=== PATIENT | male | born 1970 | race Caucasian/White ===

== ENCOUNTER 2017-01-23 11:15 | Day surgery (SDC) | payer BC ==
[~2017-01-23] VITALS: Ht 177.8 cm; Wt 86.4 kg
[~2017-01-23 11:15] MED LIST: ASPI1TAB7 PO; TESTOSTERONE PO; [UNRECOGNIZED DRUG - OTHER] PO
[2017-01-23 12:14] VITALS: BP 157/86; PULSE 73; RESP 18; TEMP 98.2; O2SAT 99
[2017-01-23] MEDS ORDERED: SODIUM CHLORIDE 0.9% FLUSH 10 ML FLUSH IV FLUSH PRN (12:15)
[2017-01-23] MEDS ORDERED: SODIUM CHLOR 0.9% 1000 ML INJ 1,000 ML IV SCH (12:15)
[2017-01-23 12:37] LABS: AUTOMATED NEUTROPHIL # 3.1 TH/MM3 (1.8-7.7); BASOPHIL # 0.1 TH/MM3 (0-0.2); EOSINOPHIL # 0.2 TH/MM3 (0-0.4); EOSINOPHIL % 4.3 % (0.0-4.0); HEMATOCRIT 46.5 % (39.0-51.0); HEMO FLAGS DIFF FINAL; LYMPH % 28.2 % (9.0-44.0); LYMPHOCYTE # 1.5 TH/MM3 (1.0-4.8); MEAN CELL VOLUME 87.2 FL (80.0-100.0); MEAN CORPUSCULAR HEMOGLOBIN 28.9 PG (27.0-34.0); MEAN CORPUSCULAR HGB CONC 33.1 % (32.0-36.0); NEUT % 56.5 % (16.0-70.0); PLATELET COUNT 183 TH/MM3 (150-450); RED BLOOD COUNT 5.33 MIL/MM3 (4.50-5.90); RED CELL DISTRIBUTION WIDTH 14.2 % (11.6-17.2); WHITE BLOOD COUNT 5.5 TH/MM3 (4.0-11.0)
--- NOTE | 2017-01-23 12:41 | HHI.HP ---
History of Present Illness Chief Complaint: R>L LE venous insufficiency History of Present Illness 46 yo male with R>L LE venous insufficiency. No DVT. no wounds. Failed compression Past/Family/Social History Past Medical History L thigh AVM (stab) Past Surgical History IHR Social History nonsmoker Family History No DVT, AVM Home Medications Reported Medications Aspirin 81 mg Tab (Aspirin 81 mg Tab) 81 Mg Tab, 1 TAB PO DAILY 10/07/13 [Social Media Marketing Specialist Cuts] No Conflict Check, 2 CAP PO BID 10/07/13 [Testosterone ] No Conflict Check, 1 CAP PO BID 10/07/13 Coded Allergies: shrimp (Unverified Allergy, Unknown, Hives, 10/11/16) FACIAL SWELLING Review of Systems Constitutional: DENIES: Diaphoretic episodes, Fatigue, Fever, Weight gain, Weight loss, Chills, Dizziness, Change in appetite, Night Sweats Cardiovascular: DENIES: Chest pain, Palpitations, Syncope, Dyspnea on Exertion , PND, Lower Extremity Edema, Orthopnea, Claudication Musculoskeletal: COMPLAINS OF: Joint Swelling Physical Exam Vitals/I&O Date Time Temp Pulse Resp B/P (MAP) Pulse Ox O2 Delivery O2 Flow Rate FiO2 01/23/17 12:14 98.2 73 18 157/86 (109) 99 Neuro: alert, oriented HEENT: NC/AT Neck: trachea midline Heart: reg rate Lungs: nonlabored breathing Vascular: R LE varicosities, no ulcers Laboratory Tests Test 01/23/17 11:40 White Blood Count 5.5 Red Blood Count 5.33 Hemoglobin 15.4 Hematocrit 46.5 Mean Corpuscular Volume 87.2 Mean Corpuscular Hemoglobin 28.9 Mean Corpuscular Hemoglobin Concent 33.1 Red Cell Distribution Width 14.2 Platelet Count 183 Mean Platelet Volume 8.8 Neutrophils (%) (Auto) 56.5 Lymphocytes (%) (Auto) 28.2 Monocytes (%) (Auto) 10.0 Eosinophils (%) (Auto) 4.3 Basophils (%) (Auto) 1.0 Neutrophils # (Auto) 3.1 Lymphocytes # (Auto) 1.5 Monocytes # (Auto) 0.5 Eosinophils # (Auto) 0.2 Basophils # (Auto) 0.1 CBC Comment DIFF FINAL Differential Comment Caprini VTE Risk Assessment Caprini VTE Risk Assessment: No/Low Risk (score <= 1) Caprini Risk Assessment Model Point Value = 1 Point Value = 2 Point Value = 3 Point Value = 5 Age 41-60 Minor surgery BMI > 25 kg/m2 Swollen legs Varicose veins or History of unexplained or recurrent spontaneous Oral contraceptives or hormone replacement Sepsis (< 1 month) Serious lung disease, including pneumonia (< 1 month) Abnormal pulmonary function Acute myocardial infarction Congestive heart failure (< 1 month) History of inflammatory bowel disease Medical patient at bed rest Age 61-74 Arthroscopic surgery Major open surgery (> 45 min) Laparoscopic surgery (> 45 min) Malignancy Confined to bed (> 72 hours) Immobilizing plaster cast Central venous access Age >= 75 History of VTE Family history of VTE Factor V Leiden Prothrombin [id number] Lupus anticoagulant Anticardiolipin antibodies Elevated serum homocysteine Heparin-induced thrombocytopenia Other congenital or acquired thrombophilia Stroke (< 1 month) Elective arthroplasty Hip, pelvis, or leg fracture Acute spinal cord injury (< 1 month) Prophylaxis Regimen Total Risk Factor Score Risk Level Prophylaxis Regimen 0-1 Low Early ambulation 2 Moderate Order ONE of the following: *Sequential Compression Device (SCD) *Heparin 5000 units SQ BID 3-4 Higher Order ONE of the following medications: *Heparin 5000 units SQ TID *Enoxaparin/Lovenox 40 mg SQ daily (WT < 150 kg, CrCl > 30 mL/min) *Enoxaparin/Lovenox 30 mg SQ daily (WT < 150 kg, CrCl > 10-29 mL/min) *Enoxaparin/Lovenox 30 mg SQ BID (WT < 150 kg, CrCl > 30 mL/min) AND/OR *Sequential Compression Device (SCD) 5 or more Highest Order ONE of the following medications: *Heparin 5000 units SQ TID (Preferred with Epidurals) *Enoxaparin/Lovenox 40 mg SQ daily (WT < 150 kg, CrCl > 30 mL/min) *Enoxaparin/Lovenox 30 mg SQ daily (WT < 150 kg, CrCl > 10-29 mL/min) *Enoxaparin/Lovenox 30 mg SQ BID (WT < 150 kg, CrCl > 30 mL/min) AND *Sequential Compression Device (SCD) Assessment and Plan Plan R>L LE venous insufficiency. Plan for RIGHT LE GSV RFA All questions answered. Olegario Tian MD Jan 23, 2017 12:41
[2017-01-23 12:43] LABS: PROTHROMBIN TIME - PATIENT 10.7 SEC (9.8-11.6)
[2017-01-23] MEDS ORDERED: LIDOCAINE HCL 1% PF 30 ML VIAL ONE ×2 (12:48→13:22)
[2017-01-23] MEDS ORDERED: ceFAZolin INJ 1,000 MG VIAL ONE (12:48)
[2017-01-23] MEDS ORDERED: SODIUM BICARBONATE 8.4% INJ 50 ML ONE (12:48)
[2017-01-23 13:16] LABS: BICARBONATE 25.4 MEQ/L (21.0-32.0); POTASSIUM 4.2 MEQ/L (3.5-5.1)
[2017-01-23] MEDS ORDERED: MIDAZOLAM HCL 5 MG/5 ML VIAL ONE (13:19)
[2017-01-23] MEDS ORDERED: MIDAZOLAM HCL 2 MG/2 ML VIAL ONE (13:34)
--- NOTE | 2017-01-23 14:08 | HHI.PR ---
Immediate Post Op Note Procedure Date: Jan 23, 2017 Pre Op Diagnosis: R LE venous insufficiency Post Op Diagnosis: R LE venous insufficiency Surgeon: Olegario Tian Monologist(s): none Procedure: R GSV RFA Findings: superficial vein Additional Information: no DVT after RFA Complications: none Specimen(s) removed: none Estimated blood loss: 10mL Anesthesia: MAC Drains: None Fluids: 800mL IVF Patient to: Other (DOCU) Patient Condition: Good Date/Time of Procedure: SEE SURGICAL CARE RECORD Olegario Tian MD Jan 23, 2017 14:08
--- NOTE | 2017-01-23 14:15 | CATHPROC ---
[facility] HIS Report Study Information Study Number Admission Scheduled Start Study Start [id number] Jan 23 2017 11:15AM 01/23/2017 Jan 23 2017 1:11PM [place] Service Cath Endovascular Study Admit Source Facility Department Other [facility] - Restaurant Team Member Physician and Clinical Staff Initial MD Tian, Mike Hairston RN Recorder Chico Bolivar,RT(R) Scrub Emeka Mccord,RT(R) Equipment Time Court Transcriber Description Size Mfg Part Number Used/Scraped CATHETER, FR7 CLOSURE FAST [id number] 13:15 BUNDLE-MEDTRONIC 100CM Used RFA 100CM *[id number] 13:15 BUNDLE-MEDTRONIC PACK, HAND CIGAR MAKING SUPERVISOR CLOSUREFAST CFP *[id number] Used SHEATH, FR7 CLOSURE FAST [id number] 13:15 BUNDLE-MEDTRONIC 7CM Used MICROINTRODUCER *[id number] KIT, CLOSURE FAST TUMESCENT 13:15 MEDTRONIC TIK-01 *[id number] Used INFILTRATION History: Allergies Allergy Reaction shrimp Hives History: Risk Factors Family History of Hypertension Dyslipidemia Previous CA Previous Heart Failure Premature CAD No No No No No Prior Valve Prior PCI Prior CABG Surgery No No No Cerebrovascular Peripheral Artery Chronic Lung On Dialysis Diabetes Disease Disease Disease No No No No No History: Stress Tests Stress or Imaging Studies Performed No History: Other Current Smoker No Labs Hgb (g/dl) Hct (%) WBC (l/cumm) Platelets (thousands) 11.60-17.00 35.00-51.00 4.00-11.00 150.00-450.00 15.4 46.5 5.5 183 Creatinine (mg/dl) 0.50-1.30 Not Drawn INR (PTT:PT) 0.90-1.10 1 CPK-MB (ng/ML) 0.50-3.60 Not Drawn Medication Medication Total Dose (Bolus/Oral) Medication Total Dosage/Unit 1% XYLOCAINE 20 mL FENTANYL 200 mcg VERSED 7 mg Medications (Bolus/Oral) Medication Time Given Dosage/Unit Administered By Reason VERSED 01/23/2017 1:28:23 PM 2 mg Mike Witt RN 2 mg VERSED given in lab by Mike Witt RN in Left Antecubital via Peripheral IV. FENTANYL 01/23/2017 1:29:58 PM 50 mcg Mike Witt RN 50 mcg FENTANYL given in lab by Mike Witt RN in Left Antecubital via Peripheral IV. VERSED 01/23/2017 1:31:29 PM 1 mg Eduar RN, Mike 1 mg VERSED given in lab by Eduar SMITH, Mike in Left Antecubital via Peripheral IV. 1% XYLOCAINE 01/23/2017 1:31:54 PM 20 mL Olegario Tian 20 mL 1% LIDOCAINE given in lab by Olegario Tian via Subcutaneous. FENTANYL 01/23/2017 1:32:49 PM 50 mcg Eduar SMITH, Mike 50 mcg FENTANYL given in lab by Eduar SMITH, Mike in Left Antecubital via Peripheral IV. VERSED 01/23/2017 1:39:09 PM 1 mg Eduar SMITH, Mike 1 mg VERSED given in lab by Eduar SMITH, Mike in Left Antecubital via Peripheral IV. FENTANYL 01/23/2017 1:40:29 PM 25 mcg Eduar RN, Mike 25 mcg FENTANYL given in lab by Eduar SMITH, Mike in Left Antecubital via Peripheral IV. FENTANYL 01/23/2017 1:42:00 PM 25 mcg Eduar SMITH, Mike 25 mcg FENTANYL given in lab by Eduar SMITH, Mike in Left Antecubital via Peripheral IV. VERSED 01/23/2017 1:43:00 PM 1 mg Eduar SMITH, Mike 1 mg VERSED given in lab by Eduar SMITH, Mike in Left Antecubital via Peripheral IV. VERSED 01/23/2017 1:45:00 PM 1 mg Eduar SMITH, Mike 1 mg VERSED given in lab by Eduar SMITH, Mike in Left Antecubital via Peripheral IV. FENTANYL 01/23/2017 1:50:00 PM 50 mcg Eduar SMITH, Mike 50 mcg FENTANYL given in lab by Eduar SMITH, Mike in Left Antecubital via Peripheral IV. VERSED 01/23/2017 1:51:00 PM 1 mg Eduar SMITH, Mike 1 mg VERSED given in lab by Eduar SMITH, Mike in Left Antecubital via Peripheral IV. Medication (Drip) Medication Time Given Dosage/Unit Concentration/Unit Diluent (ml) Solution ANCEF 01/23/2017 1:25:34 PM 2 g 2 g ANCEF given in lab by Mike Witt RN in Left Antecubital via Peripheral IV. IV Solutions 01/23/2017 1:13:16 PM 0 mL (IV) 500 NaCl .9 IV Solutions given in lab by Mike Witt RN in Left Antecubital via Peripheral IV. Pump/Drip Flow = 20 ml/hr using NaCl .9. Initial Case Assessment Cardiovascular HR Chest Pain 64 0 Edema Present Skin color Skin None Normal Warm Dry Neurological State Oriented to time-place- Alert Moves all extremities person Respiration - General SpO2 (%) O2 (lpm) 99 0 Final Case Assessment Cardiovascular HR Rhythm NIBP Chest Pain 66 Sinus 114/58 0 Edema Present Skin color Skin None Normal Warm Dry Neurological State Oriented to time-place- Alert Moves all extremities person Respiration - General Respiration Rate SpO2 (%) O2 (lpm) (B/min) 13 98 0 Chronological Log Time Study Chronological Log 13:11:01 Patient arrived via Bed. 13:11:03 Patient Name, D.O.B, / Armband Verified By R.N. 13:11:04 Consent signed by the physician and the patient and verified by the Restaurant Team Member staff. 13:11:05 Pre-op and post- op instructions given; patient acknowledges understanding of instructions. 13:11:06 Verbal Stimulation=2 Physical Stimulation=2 Airway=2 Respiration=2 TOTAL=8. (0=absent, 1=li mited, 2=present) 13:12:29 Presedation assessment performed by Restaurant Team Member RN. 13:12:36 Patient has been NPO for More than 6Hrs. 13:12:38 Skin Breakdown- none per patient. 13:12:46 MD arrived. 13:12:57 Candido Prominences Protected 13:12:59 A # 20 IV was noted in the Antecubital (left). Grade = 0 IV Solutions given in lab by Mike Witt RN in Left Antecubital via Peripheral IV. Pump/Drip F low = 20 ml/hr using NaCl 13:13:16 .9. 13:13:38 History and physical on the chart or being dictated. Assessment: Initial Case, HR=64 BPM, Chest Pain=0, Edema=None, Color=Normal, Skin = Warm, Dry 13:13:39 Neurological: State=Alert, Ox3, WOLF Respiration: SpO2=99 %, O2=0 lpm Vitals capture started with the following parameters, Patient=Adult, Interval=5 min, Initial Pr mpcgrd=780 mmHg, 13:16:12 Deflation Rate=5 mmHg, Cuff placed on Right Arm 13:16:56 HR=60 bpm, NMJL=719/73 mmhg, SpO2=99.0 %, Resp=20 B/min, Pain=0, Melissa=10, Resendez=2 13:22:01 Right leg prepped with 2% chlorhexidine, and draped after a 3 min. waiting time. 13:22:36 HR=68 bpm, EPSR=922/64 mmhg, SpO2=99.0 %, Resp=23 B/min, Pain=0, Melissa=10, Resendez=2 13:25:34 2 g ANCEF given in lab by Mike Witt RN in Left Antecubital via Peripheral IV. 13:26:52 HR=66 bpm, YQPM=217/61 mmhg, SpO2=97.0 %, Resp=22 B/min 13:28:23 2 mg VERSED given in lab by Mike Witt RN in Left Antecubital via Peripheral IV. Time Out. Correct patient, correct procedure, correct physician, power injector not loaded with contrast with surgical 13:28:40 team present. Time Out Concurred by MD and individual staff in procedure. 13:29:58 50 mcg FENTANYL given in lab by Mike Witt RN in Left Antecubital via Peripheral IV. 13:30:20 Case Start 13:31:28 Leg ultrasound with administration of Lidocaine. 13:31:29 1 mg VERSED given in lab by Mike Witt RN in Left Antecubital via Peripheral IV. 13:31:49 HR=72 bpm, QPBH=150/55 mmhg, SpO2=94.0 %, Resp=21 B/min, Pain=0, Melissa=10, Resendez=2 13:31:54 20 mL 1% LIDOCAINE given in lab by Olegario Tian via Subcutaneous. 13:32:49 50 mcg FENTANYL given in lab by Mike Witt RN in Left Antecubital via Peripheral IV. 13:36:52 HR=63 bpm, KGDK=351/52 mmhg, SpO2=93.0 %, Resp=16 B/min, Pain=0, Melissa=10, Resendez=2 13:39:00 Access site was No Arterial Access. Right leg vein. 13:39:09 1 mg VERSED given in lab by Mike Witt RN in Left Antecubital via Peripheral IV. A SHEATH, FR7 CLOSURE FAST MICROINTRODUCER 7CM was advanced into the Right Leg (lower) using th e 13:40:11 Percutaneous technique. 13:40:29 25 mcg FENTANYL given in lab by Eduar SMITH, Mike in Left Antecubital via Peripheral IV. 13:41:54 HR=65 bpm, ISPO=075/48 mmhg, SpO2=95.0 %, Resp=15 B/min, Pain=0, Melissa=10, Resendez=2 13:42:00 25 mcg FENTANYL given in lab by Eduar SMITH, Mike in Left Antecubital via Peripheral IV. 13:43:00 1 mg VERSED given in lab by Eduar SMITH, Mike in Left Antecubital via Peripheral IV. 13:45:00 1 mg VERSED given in lab by Eduar SMITH, Mike in Left Antecubital via Peripheral IV. 13:45:52 A CATHETER, FR7 CLOSURE FAST RFA 100CM 100CM was advanced Ablation catheter. 13:46:50 HR=66 bpm, UCVI=818/60 mmhg, SpO2=98.0 %, Resp=12 B/min, Pain=0, Melissa=10, Resendez=2 13:50:00 50 mcg FENTANYL given in lab by Mike Witt RN in Left Antecubital via Peripheral IV. 13:51:00 1 mg VERSED given in lab by Eduar SMITH, Mike in Left Antecubital via Peripheral IV. 13:51:56 HR=65 bpm, PZHM=867/43 mmhg, SpO2=97.0 %, Resp=19 B/min, Pain=0, Melissa=10, Resendez=2 13:55:15 Ablation in progress. 13:56:57 HR=60 bpm, KAYW=344/49 mmhg, SpO2=94.0 %, Resp=18 B/min, Pain=0, Melissa=10, Resendez=2 14:01:54 HR=65 bpm, ONPF=612/46 mmhg, SpO2=96.0 %, Resp=33 B/min, Pain=0, Melissa=10, Resendez=2 14:04:21 Case End 14:04:28 Sheath removed; pressure applied to access site. 14:05:28 No case complications noted. 14:05:32 Sterile dressing applied to site Assessment: Final Case, HR=66 BPM, Rhythm=Sinus, UKWD=820/58 mmhg, Chest Pain=0, Edema=None, Color=Normal, Skin = Warm, Dry 14:06:15 Neurological: State=Alert, Ox3, WOLF Respiration: Resp=13 B/min, SpO2=98 %, O2=0 lpm 14:06:53 HR=66 bpm, NAJT=468/58 mmhg, SpO2=98.0 %, Resp=13 B/min, Pain=0, Melissa=10, Resendez=2 14:11:27 Vitals capture stopped. 14:12:59 Bedside Report will be given. End Study - Contrast Media Used In Study Contrast Total Opened (mL) Total Used (mL) Total Wasted (mL) Unspecified 0 0 0 End Study - Radiation Exposure Fluoro Time (minutes) 0.0 End Study - Patient Disposition Complications Transferred To Interventional Outcome No Outpatient Bed No attempt made
--- NOTE | 2017-01-24 06:16 | MP ---
cc: OLEGARIO TIAN MD DATE OF SURGERY 01/23/2017 PREOPERATIVE DIAGNOSIS Right lower extremity venous insufficiency, failed compression therapy. POSTOPERATIVE DIAGNOSIS Right lower extremity venous insufficiency, failed compression therapy. PROCEDURE Right lower extremity greater saphenous vein radiofrequency ablation. ATTENDING SURGEON Olegario Tian MD ANESTHESIA Local with sedation. INDICATION Mr. Sears is a 46-year-old gentleman who has bilateral lower extremity venous insufficiency with the right being more symptomatic than the left. He has tried and failed compression therapy and preoperative duplex suggests he had truncal insufficiency in his saphenous vein. He is taken to the operating room for ablation. DESCRIPTION OF PROCEDURE Informed consent was obtained from the patient. He was taken to the operating room and placed supine on the operating room table. An appropriate time-out was taken to insure patient identify, the operating site and the planned procedure. Two grams of Ancef were initiated prior to the skin incision and will be discontinued after a single preoperative dose. Everyone in the room agreed with the time-out and we proceeded. His right leg was prepped and draped. With the patient in reverse Trendelenburg position, the skin overlying the mid-calf greater saphenous vein was anesthetized with 1% lidocaine. The greater saphenous vein was accessed with a 21-gauge micropuncture needle; this was exchanged using Seldinger technique for a micropuncture needle and this was exchanged using Seldinger technique for a 7-Grenadian sheath. The ClosureFast catheter was then advanced through the 7-Grenadian sheath and positioned 2 cm from the saphenofemoral junction. This was confirmed ultrasonographically. The patient was then placed in Trendelenburg position and the saphenous vein was anesthetized with julissa-saphenous tumescence and the entire saphenous vein was ablated. The catheter and sheath were removed and pressure was held for hemostasis. At the completion we performed a duplex that showed no DVT proximally. The patient tolerated the procedure well and I was present and scrubbed for the entire procedure. Olegario Tian MD RJF/SSB /5:16 AM /6:03 AM
== END 2017-01-23 16:15 | disposition home or self-care (01) ==
LOC: HCAT 11:15 → HDIC 11:16 → HCAT 16:15
PROVIDERS: ATTEND Surgery
DX: I87.2 Venous insufficiency (chronic) (peripheral) (principal); Z79.82 Long term (current) use of aspirin
CPT/HCPCS: 36475; 80048; 85025; 85610; J0690; J2250; J3010

== ENCOUNTER → 2017-02-14 | Day surgery (SDC) | payer BC ==
[~2017-02-14] VITALS: Ht 177.8 cm; Wt 87.0 kg
[~2017-02-14] MED LIST changes: +*morphine SULFATE 8 MG/ML PERIprocedure ONLY ONE; +ASPI1TAB57 PO; -ASPI1TAB7 PO; +CHLORHEXIDINE GLUCONATE 2 % 1 PACK (2 CLOTHS) TOPICAL PRN; +DEXAMETHASONE SOD PHOS 4 MG/ML VIAL IV ONE; +DHEA50TA PO; +DO NOT ADM ANY ANTICOAGULANT DRUGS PRN; +HEPARIN SODIUM - IV 10,000 UNITS/10 ML VIAL ONE; +HEPARIN-NS/PF INJ 500 ML ONE; +IOHEXOL 300 MG/ML 100 ML BTL (for Rad CT) IVCONTRAST ONE; +LACTATED RINGER'S 1000 ML IV PRN; +LIDOCAINE HCL 1% PF 5 ML SYRINGE IV ONE; +LIDOCAINE HCL 1% PF 5 ML SYRINGE OTHER ONE; +METH36 PO; +METOPROLOL TARTRATE 25 MG TAB PO PRN; +OMEGCAP PO; +ONDANSETRON HCL 4 MG/2 ML VIAL IV ONE; +ONDANSETRON HCL 4 MG/2 ML VIAL IV PUSH ONE; +PHENYLEPH/NS 1000 MCG/10 ML SYR IV ONE; +PHENYLEPH/NS 1000 MCG/10 ML SYR OTHER ONE; +POVIDONE IODINE 5% (ANTISEPSIS KIT) 4 APPLICATIONS EACH NARE PRN; +PROPOFOL 200 MG/20 ML AMP IV ONE; +PROTAMINE SULFATE 50 MG/5 ML VIAL ONE; +SODIUM CHLORID 0.9% 500 ML IV PRN; +TEST200I13 IM; -TESTOSTERONE PO; +VITA100064 PO; -[UNRECOGNIZED DRUG - OTHER] PO; +ceFAZolin 2 GM PREMIX 0 ML ONE; +ceFAZolin INJ 1,000 MG VIAL IV ONE
--- NOTE | 2017-02-14 11:07 | HHI.HP ---
History of Present Illness Chief Complaint: L LE swelling and varicosities History of Present Illness 46 yo male with L LE swelling. Known AVM that has never been treated. Also has R LE venous insufficiency and recently underwent R GSV RFA. Otherwise very healthy. Past/Family/Social History Past Medical History venous insufficiency Presumed L thigh AVM Past Surgical History R GSV RFA Social History nonsmoker Family History NC Home Medications Reported Medications Cholecalciferol (Vitamin D3) 1,000 Unit Tab, 1000 UNITS PO DAILY for Nutritional Supplement, #1 BOTTLE 0 Refills 02/13/17 Fish Oil-Cholecalciferol ([place]-3 Fish Oil/Vitamin) 1,000-1,000 Mg Cap, 1 CAP PO DAILY for Nutritional Supplement, CAP 0 Refills 02/13/17 Prasterone (Dhea) 50 Mg Tab, 1 TAB PO DAILY 02/13/17 Testosterone Enanthate Inj (Testosterone Enanthate Inj) 200 Mg/Ml Inj, 200 MG IM Q10D for Hormone Replacement, #1 VIAL 0 Refills 02/13/17 Methylphenidate ER 24 HR (Concerta) 36 Mg Mina, 72 MG PO DAILY for ADHD, #30 TAB 0 Refills 02/13/[address] (Aspirin 81) 81 Mg Tabdr, 81 MG PO DAILY, TAB 0 Refills 02/13/17 Discontinued Reported Medications Aspirin 81 mg Tab (Aspirin 81 mg Tab) 81 Mg Tab, 1 TAB PO DAILY 10/07/13 [Substance Abuse Prevention Coordinator Cuts] No Conflict Check, 2 CAP PO BID 10/07/13 [Testosterone ] No Conflict Check, 1 CAP PO BID 10/07/13 Coded Allergies: shrimp (Unverified Allergy, Unknown, Hives, 02/14/17) FACIAL SWELLING Review of Systems Constitutional: DENIES: Fever, Chills Physical Exam Vitals/I&O Date Time Temp Pulse Resp B/P (MAP) Pulse Ox O2 Delivery O2 Flow Rate FiO2 02/14/17 10:14 98.1 66 20 122/63 (82) 98 Neuro: WOLF, no distress HEENT: NC/AT ;anicteric sclera Neck: trachea midline; no JVD Heart: reg rate Lungs: clear B Vascular: palpable femoral pulses Extremities: marked varicosities, B no ulcerations Caprini VTE Risk Assessment Caprini VTE Risk Assessment: No/Low Risk (score <= 1) Caprini Risk Assessment Model Point Value = 1 Point Value = 2 Point Value = 3 Point Value = 5 Age 41-60 Minor surgery BMI > 25 kg/m2 Swollen legs Varicose veins or History of unexplained or recurrent spontaneous Oral contraceptives or hormone replacement Sepsis (< 1 month) Serious lung disease, including pneumonia (< 1 month) Abnormal pulmonary function Acute myocardial infarction Congestive heart failure (< 1 month) History of inflammatory bowel disease Medical patient at bed rest Age 61-74 Arthroscopic surgery Major open surgery (> 45 min) Laparoscopic surgery (> 45 min) Malignancy Confined to bed (> 72 hours) Immobilizing plaster cast Central venous access Age >= 75 History of VTE Family history of VTE Factor V Leiden Prothrombin [id number] Lupus anticoagulant Anticardiolipin antibodies Elevated serum homocysteine Heparin-induced thrombocytopenia Other congenital or acquired thrombophilia Stroke (< 1 month) Elective arthroplasty Hip, pelvis, or leg fracture Acute spinal cord injury (< 1 month) Prophylaxis Regimen Total Risk Factor Score Risk Level Prophylaxis Regimen 0-1 Low Early ambulation 2 Moderate Order ONE of the following: *Sequential Compression Device (SCD) *Heparin 5000 units SQ BID 3-4 Higher Order ONE of the following medications: *Heparin 5000 units SQ TID *Enoxaparin/Lovenox 40 mg SQ daily (WT < 150 kg, CrCl > 30 mL/min) *Enoxaparin/Lovenox 30 mg SQ daily (WT < 150 kg, CrCl > 10-29 mL/min) *Enoxaparin/Lovenox 30 mg SQ BID (WT < 150 kg, CrCl > 30 mL/min) AND/OR *Sequential Compression Device (SCD) 5 or more Highest Order ONE of the following medications: *Heparin 5000 units SQ TID (Preferred with Epidurals) *Enoxaparin/Lovenox 40 mg SQ daily (WT < 150 kg, CrCl > 30 mL/min) *Enoxaparin/Lovenox 30 mg SQ daily (WT < 150 kg, CrCl > 10-29 mL/min) *Enoxaparin/Lovenox 30 mg SQ BID (WT < 150 kg, CrCl > 30 mL/min) AND *Sequential Compression Device (SCD) Assessment and Plan Plan L LE angiogram and embolization Discharge Planning today family: [phone] Olegario Tian MD Feb 14, 2017 11:06
--- NOTE | 2017-02-14 12:57 | HHI.PR ---
cc: Olegario Tian MD Immediate Post Op Note Procedure Date: Feb 14, 2017 Pre Op Diagnosis: L thigh AVM Post Op Diagnosis: L thigh AVM Surgeon: Olegario Tian Draw Frame Operator(s): none Procedure: Embolization of L thigh AVM R CORPORATE COMMUNICATIONS SPECIALIST Angioseal Findings: L profunda based AVM, reduction in opacification after embolization Complications: none Specimen(s) removed: none Estimated blood loss: 10mL Anesthesia: LMA Drains: None IVF Patient to: PACU Patient Condition: Good Implant/Devices: SEE IMPLANT LOG (if applicable) Date/Time of Procedure: SEE SURGICAL CARE RECORD Olegario Tian MD Feb 14, 2017 12:57
[2017-02-14 14:53] VITALS: BP 115/69; PULSE 64; RESP 20; TEMP 98.1; O2SAT 98
--- NOTE | 2017-02-15 07:41 | MP ---
cc: PHILLIP GANT MD DATE OF SURGERY 02/14/2017 PREOPERATIVE DIAGNOSIS Left thigh arteriovenous malformation. POSTOPERATIVE DIAGNOSIS Left thigh arteriovenous malformation. PROCEDURE Embolization of left thigh AVM and profunda branches. ANESTHESIA General. INDICATION Mr. Sears is a 46-year-old gentleman a left thigh AVM and symptoms of venous insufficiency. He is taken operating room for angiographic evaluation and endovascular therapy. DESCRIPTION OF PROCEDURE Informed consent was obtained from the patient. He was taken to the operating room and placed supine on the operating room table. Appropriate time-out was taken to ensure the patient's identity, the operative site and the planned procedure. The administration of 2 grams of Ancef was initiated prior to skin incision and will be discontinued after a single preoperative dose. Everyone in the room agreed with the time-out and we proceeded. His bilateral groins were prepped and draped and the right groin was accessed with a 21-gauge micropuncture needle which was exchanged using Seldinger technique for a micropuncture sheath through which a 0.035 Glidewire was inserted. The micropuncture sheath was exchanged for a 5-Ghanaian sheath and a VCF catheter was placed over the wire into the sheath and the VCF catheter and Glidewire navigated down to the left common femoral artery and left lower extremity arteriogram was obtained. The patient systemically heparinized with 5000 units of IV heparin. A 0.035 Ko wire was passed down the profunda. The VCF catheter and 5-Ghanaian sheath were removed and a 6-Ghanaian, 55-cm sheath was introduced. A vertebral catheter was then placed over the Ko and the vertebral catheter and the Ko were exchanged for a PROGREAT microcatheter. Using the PROGREAT microcatheter we were able to navigate into four major profunda branches. They were successfully embolized with 2, 3 and 4-mm coils. The completion angiogram showed excellent result and diminution of the opacification of the arteriovenous malformation. Wire catheter and sheath were removed. The groin was closed with Angio-Seal. There were no complications. I was present and scrubbed and performed the entire procedure. MD JACKSON WhiteheadF/ANDRÉS /3:47 PM /7:22 AM
== END | disposition home or self-care (01) ==
LOC: HSDC 09:36
PROVIDERS: ATTEND Surgery
DX: Q27.32 Arteriovenous malformation of vessel of lower limb (principal); I87.2 Venous insufficiency (chronic) (peripheral); Z79.82 Long term (current) use of aspirin
CPT/HCPCS: 01924; 37242; 75710; C1725; C1769; J0690; J1100; J1644; J2270; J2370; J2405; J2720; J7120; Q9967